=== PATIENT | male | born 1955 | race African-American/Black ===

== ENCOUNTER 2020-08-06 09:43 | Emergency (ER) | payer BC ==
[~2020-08-06] VITALS: Ht 177.8 cm; Wt 75.8 kg
--- NOTE | 2020-08-06 11:11 | NUR ---
PT HAS CO HAVING PROBLEMS VOIDING AND NOT BEING ABLE TO SINCE 5 HOURS AGO. HX OF PROSTATE PROBLEMS, BLADDER SCAN >1000. RN INSERTED STAPLETON PER MD ORDERS. 18 FR COUDE, NO DIFFICULTY W INSERTION. PT TOLERATED WELL, DRAINED 1000 ML CLEAR YELLOW URINE. LEG BAG AND SECURTIY DEVICE APPLIED. STERIL TECHNIQUE DURING STAPLETON INSERTION
[2020-08-06 11:24] LABS: BASOPHILS % (AUTO) 0 % (0-1); EOSINOPHILS % (AUTO) 0 % (1-7); LYMPHOCYTES % (AUTO) 10 % (22-44); MEAN CORPUSCULAR HEMOGLOBIN 30.3 pg (27.5-34.5); MEAN CORPUSCULAR HGB CONC 33.6 g/dL (33.2-36.2); MEAN PLATELET VOLUME 8.3 fL (7.4-10.4); MONOCYTES % (AUTO) 7 % (2-9); NEUTROPHILS % (AUTO) 82 % (42-75); PLATELET COUNT 298 x10^3/uL (130-400); RED BLOOD COUNT 4.68 x10^6/uL (4.38-5.82); RED CELL DISTRIBUTION WIDTH 14.2 % (9.4-14.8)
[2020-08-06 11:34] LABS: ALBUMIN 3.4 g/dL (3.4-5.0); ANION GAP 6 mmol/L (5-15); CALCIUM 9.4 mg/dL (8.5-10.1); CHLORIDE 107 mmol/L (98-107); CREATININE 1.49 mg/dL (0.7-1.3)
[2020-08-06 11:36] LABS: MD NO
[2020-08-06 12:22] LABS: MICROSCOPIC AUTO
--- NOTE | 2020-08-06 12:59 | NUR ---
Patient/Caregiver given discharge instructions and they have confirmed that they understand the instructions. Patient ambulatory with steady gait.
[2020-08-06 13:00] VITALS: BP 145/86
== END 2020-08-06 13:30 | disposition home or self-care (01) ==
LOC: ED 10:53
DX: N40.1 Benign prostatic hyperplasia with lower urinary tract symptoms (principal); R33.8 Other retention of urine; N28.9 Disorder of kidney and ureter, unspecified; E11.9 Type 2 diabetes mellitus without complications
CPT/HCPCS: 36415; 51702; 80048; 81001; 82040; 85025; 99284